=== PATIENT | female | born 1960 ===

== ENCOUNTER 2022-09-13 11:05 | Emergency (ER) | payer OTHER ==
[~2022-09-13] VITALS: Ht 160 cm; Wt 81.6 kg
[~2022-09-13 11:05] MED LIST: DESPEC-DM TABL1 EACH PO; NAPR500T14 PO; TAMOXIFEN CITRA20 MG; ZITHROMAX500 MG PO
[2022-09-13] MEDS ORDERED: SIMVASTATIN5 MG PO (11:23)
[2022-09-13] MEDS ORDERED: KAPSPARGO SPRIN50 MG PO (11:23)
== END 2022-09-13 16:45 | disposition home or self-care (01) ==
LOC: ER 11:05
DX: U07.1 COVID-19 (principal); R53.81 Other malaise; I10 Essential (primary) hypertension; Z88.2 Allergy status to sulfonamides; Z91.013 Allergy to seafood